=== PATIENT | female | born 1970 | race Caucasian/White ===

== ENCOUNTER 2021-09-30 10:15 | Emergency (ER) | payer OTHER, SELFPAY ==
[2021-09-30 10:37] VITALS: BP 177/87; PULSE 84; RESP 18; TEMP 37.1; O2SAT 98; BMI 31.3
--- NOTE | 2021-09-30 11:00 | ED.EAR ---
HPI - Ear Problem General Chief complaint: Ear Problems Stated complaint: Ear infection Time Seen by Provider: 09/30/21 10:50 Source: patient and family Mode of arrival: ambulatory Limitations: no limitations History of Present Illness HPI Narrative: 51-year-old female here with left ear pain since Wednesday with itching, drainage from the ear and decreased hearing. No cough, cold, fever. No history of diabetes. No recent illnesses Related Data Previous Rx's Medication Instructions Recorded amoxicillin 875 mg-potassium 1 tab PO BID #14 tab 09/30/21 clavulanate 125 mg tablet ciprofloxacin 0.3 %-dexamethasone 4 drp OTIC (EARS) BID 7 Days #7.5 09/30/21 0.1 % ear drops,suspension ml (Ciprodex) Allergies Allergy/AdvReac Type Severity Reaction Status Date / Time prochlorperazine Allergy Seizure Verified 09/30/21 10:37 [From Compazine] Review of Systems Review of Systems: Yes all other systems are reviewed and are negative Constitutional: Constitutional: Reports no additional constitutional complaints, Denies body ache(s), Denies chills, Denies fever(s), Denies headache(s) and Denies weakness Eyes: Eyes: Reports no additional eye complaints and Denies change in vision ENT: Reports system reviewed and no additional complaints, except as documented, Denies dizziness, Reports ear discharge, Reports otalgia, Denies headache(s), Reports hearing loss, Denies nasal congestion, Denies nasal discharge and Denies neck pain Cardiovascular: Cardiovascular: Reports no additional cardiovascular complaints, Denies chest pain, Denies leg edema and Denies dyspnea Respiratory: Respiratory: Reports no additional respiratory complaints, Denies cough and Denies dyspnea Gastrointestinal: Gastrointestinal: Reports no additional gastrointestinal complaints, Denies abdominal pain, Denies diarrhea, Denies nausea and Denies vomiting Genitourinary: Genitourinary: Reports no additional female genitourinary complaints and Denies urinary incontinence Musculoskeletal: Musculoskeletal: Reports no additional musculoskeletal complaints, Denies back pain, Denies arthralgias, Denies joint swelling, Denies neck pain, Denies numbness and Denies tingling Integumentary/Breasts: Skin/Breast: Reports system reviewed and no additional complaints, except as docu and Denies rash Neurologic: Reports system reviewed and no additional complaints, except as documented, Denies Abnormal speech present, Denies dizziness, Denies headache(s), Denies numbness, Denies tingling and Denies weakness PMF Past Medical History Attestation statement: The following information was validated with the patient. Source: old records reviewed and nursing notes reviewed Social History Social History Advance Directives: No Advance Directives Information Provided: No Physical Exam Vital Signs: Vital Signs: Last Vital Signs Temp 98.7 F 09/30/21 10:37 Pulse 84 09/30/21 10:37 Resp 18 09/30/21 10:37 BP 177/87 H 09/30/21 10:37 Pulse Ox 98 09/30/21 10:37 BMI result Body Mass Index 31.3 Const: General: cooperative, healthy appearing, comfortable and no acute distress Orientation/consciousness: patient oriented x3 Limitations: no limitations HENMT: Head: Yes normal to inspection Ears: hearing grossly normal bilaterally, TM normal on the right, mastoids normal, Abnormal EAC present erythema, edema, EAC tenderness and otic discharge, periauricular adenopathy and unable to visualize TM (left side) General nose exam: Normal external nose present Face and sinus: Yes normal facial exam Mouth: Normal oral and palatal mucosa present Throat: Yes posterior oropharynx normal, Yes tonsils normal and Yes uvula midline Eyes: General: appearance normal, both eyes and all related structures Pupils: Equal, round and reactive pupils present Neck: Neck: Yes normal visual inspection, Yes full ROM, Yes no lymphadenopathy and Yes no meningeal signs Chest: Chest palpation & inspection: normal inspection of the chest Resp: Effort & Inspection: normal respiratory effort Auscultation: clear to auscultation bilaterally Cardio: Rate: regular rate Rhythm: regular rhythm Peripheral pulses: Peripheral pulses 2+ throughout GI: Inspection: Yes normal to inspection Palpation (GI): Soft to palpation and nontender Auscultation: normal bowel sounds Back/Spine/Pelvis: Thoracic/Lumbar Spine: thoracic and lumbar spine normal to inspection Skin: General skin exam: no rashes or lesions noted Neuro: General: patient oriented x3, moves all extremities, no meningeal signs, no focal motor deficits and normal sensation to monofilament Cranial nerves: Yes Equal, round and reactive pupils present Cognition (Neuro): normal cognition Speech: No Abnormal speech present Gait exam (Neuro): Normal gait present Motor exam (neuro): 5/5 motor strength present throughout Extrem: General: Yes normal to inspection Course Course Course Narrative: 51-year-old female here with 4 days of left ear pain, drainage from the left ear with decreased hearing. No recent URI or cough or cold symptoms. No fever. On exam the patient has an external canal the swollen, edematous, red and tender with periauricular adenopathy. There is no mastoid tenderness. There is no redness or tenderness behind the ear. Unable to visualize TM on left side. The canal is partially open so I discussed with the patient at this time she does not require an ear wick placement. The patient is agreeable with this. I did explain to her that if she is unable to get the drops inside the ear due to swelling she will need to return. Reviewed worrisome signs and symptoms of when to return to the emergency department. Comfortable discharge home. MDM - Ear Differential Diagnosis Differential diagnosis: Likely otitis externa and otitis media Medical Records Attestation: I reviewed the patient's medical records. Lab Data Attestation: I reviewed the patient's lab results. Discharge Plan Discharge Clinical Impression: Otitis externa, Otitis media Patient Disposition: Home, Self-Care Instructions: Otitis Externa (DC), How to Use Ear Drops (ED), Ear Infection (ED) Additional Instructions: After using the drops stay laying down on the unaffected side for 15 minutes to let them instill Return for fever >100.4, swelling or pain behind the ear as discussed Prescriptions: New ciprofloxacin-dexamethasone [Ciprodex] 0.3-0.1 % drops,suspension 4 drp otic (ears) BID 7 Days Qty: 7.5 0RF amoxicillin-pot clavulanate 875-125 mg tablet 1 tab PO BID Qty: 14 0RF Referrals: Silvia Yates MD [Primary Care Provider] - 1 week (if no better)
== END 2021-09-30 11:13 | disposition home or self-care (01) ==
LOC: HO.ED 11:03
PROVIDERS: Emergency Provider Emergency Medicine; PCP Internal Medicine
DX: H60.92 Unspecified otitis externa, left ear (principal); H66.92 Otitis media, unspecified, left ear
CPT/HCPCS: 99283

== ENCOUNTER 2021-12-12 10:07 | Emergency (ER) | payer OTHER, SELFPAY ==
[2021-12-12 11:10] VITALS: BP 175/87; PULSE 74; RESP 16; TEMP 36.9; O2SAT 96; BMI 33.3
--- NOTE | 2021-12-12 11:15 | ED.GENADULT ---
HPI - General Adult General Chief complaint: Skin/Abscess/Foreign Body <NICOLA Cole - Last Filed: 12/12/21 11:29> Stated complaint: rash <NICOLA Cole Last Filed: 12/12/21 11:29> Time Seen by Provider: 12/12/21 11:14 <NICOLA Cole Last Filed: 12/12/21 11:29> Source: patient <NICOLA Cloe Last Filed: 12/12/21 11:29> Mode of arrival: ambulatory <NICOLA Cole Last Filed: 12/12/21 11:29> Limitations: no limitations <NICOLA Cole Last Filed: 12/12/21 11:29> History of Present Illness HPI narrative: Patient is a 51 year old female presenting to the emergency department today with a rash. Patient states that she developed a rash a few days ago that is very itchy and does not seem to be getting better. Patient denies any dizziness, lightheadedness, abdominal pain, nausea, vomiting, fever, chills, blurry vision, double vision, loss of vision, chest pain, difficulty breathing, shortness of breath, back pain, night sweats, pain with urination, increased urinary frequency, increased urinary urgency, blood in her urine or stool, syncope or a near syncopal episode, recent trauma or falls, bowel incontinence, bladder incontinence, bowel retention, bladder retention, or any other complaints at this time.? <NICOLA Cole - Last Filed: 12/12/21 11:29> Onset (ago): day(s) <NICOLA Cole - Last Filed: 12/12/21 11:29> Relieving factors: none <NICOLA Cole Last Filed: 12/12/21 11:29> Exacerbating factors: none <NICOLA Cole Last Filed: 12/12/21 11:29> Treatments prior to arrival: none <NICOLA Cole Last Filed: 12/12/21 11:29> Related Data Home medications: Previous Rx's Medication Instructions Recorded amoxicillin 875 mg-potassium 1 tab PO BID #14 tab 09/30/21 clavulanate 125 mg tablet ciprofloxacin 0.3 %-dexamethasone 4 drp OTIC (EARS) BID 7 Days #7.5 09/30/21 0.1 % ear drops,suspension ml (Ciprodex) prednisone 20 mg tablet 20 mg PO DAILY 12 Days #26 tab 12/12/21 <NICOLA Cole Last Filed: 12/12/21 11:29> Allergies/adverse reactions: Allergies Allergy/AdvReac Type Severity Reaction Status Date / Time prochlorperazine Allergy Seizure Verified 09/30/21 10:37 [From Compazine] <NICOLA Cole Last Filed: 12/12/21 11:29> Review of Systems Constitutional: Constitutional: Reports no additional constitutional complaints, Denies chills, Denies fever(s) and Denies night sweats <NICOLA Cole Last Filed: 12/12/21 11:29> Eyes: Eyes: Reports no additional eye complaints, Denies blurry vision, Denies change in vision, Denies diplopia, Denies eye discharge, Denies loss of vision and Denies eye pain <NICOLA Cole Last Filed: 12/12/21 11:29> ENT: Denies dizziness <NICOLA Cole Last Filed: 12/12/21 11:29> Cardiovascular: Cardiovascular: Reports no additional cardiovascular complaints, Denies chest pain, Denies lightheadedness, Denies Loss of Consciousness and Denies dyspnea <NICOLA Cole Last Filed: 12/12/21 11:29> Respiratory: Respiratory: Reports no additional respiratory complaints and Denies dyspnea <NICOLA Cole Last Filed: 12/12/21 11:29> Gastrointestinal: Gastrointestinal: Reports no additional gastrointestinal complaints, Denies abdominal pain, Denies melena, Denies hematochezia, Denies change in bowel habits and Denies change in stool character <NICOLA Cole Last Filed: 12/12/21 11:29> Genitourinary: Genitourinary: Denies hematuria, Denies urinary frequency, Denies dysuria, Denies urinary incontinence, Denies urinary hesitancy and Denies urinary urgency <NICOLA Cole Last Filed: 12/12/21 11:29> Musculoskeletal: Musculoskeletal: Reports no additional musculoskeletal complaints, Denies numbness and Denies tingling <NICOLA Cole - Last Filed: 12/12/21 11:29> Integumentary/Breasts: Skin/Breast: Reports rash <NICOLA Cole - Last Filed: 12/12/21 11:29> Neurologic: Denies dizziness, Denies loss of vision, Denies numbness and Denies tingling <NICOLA Cole - Last Filed: 12/12/21 11:29> Psychiatric: Psychiatric: Reports no additional psychiatric complaints <NICOLA Cole - Last Filed: 12/12/21 11:29> Endocrine: Endocrine: Reports no additional endocrine complaints <NICOLA Cole - Last Filed: 12/12/21 11:29> Hematologic/Lymphatic: Hematologic/Lymphatic: Reports no additional hematologic/lymphatic complaints <NICOLA Cole - Last Filed: 12/12/21 11:29> Allergic/Immunologic: Allergic/Immunologic: Reports no additional allergic/immunologic complaints <NICOLA Coel - Last Filed: 12/12/21 11:29> PMFSH Past Medical History Attestation statement: The following information was validated with the patient. <NICOLA Cole - Last Filed: 12/12/21 11:29> Source: old records reviewed <NICOLA Cole - Last Filed: 12/12/21 11:29> Social History Social History: Social History Advance Directives: No Advance Directives Information Provided: Yes <NICOLA Cole - Last Filed: 12/12/21 11:29> Physical Exam ED Vital Signs: Vital Signs - 24 hr 12/12/21 11:10 Temperature 98.5 F Pulse Rate 74 Respiratory Rate 16 Blood Pressure 175/87 H Pulse Oximetry 96 BMI result Body Mass Index 33.3 <NICOLA Cole - Last Filed: 12/12/21 11:29> Const General: cooperative, no acute distress, alert and awake <NICOLA Cole - Last Filed: 12/12/21 11:29> Nutritional Appearance: well nourished <NICOLA Cole - Last Filed: 12/12/21 11:29> Orientation/consciousness: patient oriented x3 <NICOLA Cole - Last Filed: 12/12/21 11:29> Limitations: no limitations <Judi Blocksiena [facility] - Last Filed: 12/12/21 11:29> HENMT Head: Yes normal to inspection and Yes atraumatic <Judi Blocksiena NH - Last Filed: 12/12/21 11:29> Ears: hearing grossly normal bilaterally and external ears normal <Judi Aditya NH - Last Filed: 12/12/21 11:29> General nose exam: Normal external nose present, no nasal discharge noted and no epistaxis <Judichristina Blocksiena NH - Last Filed: 12/12/21 11:29> Face and sinus: Yes normal facial exam, No abrasion and No laceration <Judi Burgess NH - Last Filed: 12/12/21 11:29> Mouth: Normal oral and palatal mucosa present, no drooling and no muffled voice <Judi Burgess NH - Last Filed: 12/12/21 11:29> Eyes General: appearance normal, both eyes and all related structures <Judi Burgess NH - Last Filed: 12/12/21 11:29> Periorbital: periorbital findings normal <Judi Aditya NH - Last Filed: 12/12/21 11:29> Eyelids: Yes eyelids normal <Judi Burgess NH - Last Filed: 12/12/21 11:29> Conjunctivae: conjunctivae normal <Judi Burgess NH - Last Filed: 12/12/21 11:29> Pupils: Equal, round and reactive pupils present <Judi Burgess NH - Last Filed: 12/12/21 11:29> EOM: EOMs intact bilaterally <Judi Burgess NH - Last Filed: 12/12/21 11:29> Neck Neck: Yes normal visual inspection, Yes full ROM and Yes no lymphadenopathy <NICOLA Cole - Last Filed: 12/12/21 11:29> Chest Chest palpation & inspection: normal inspection of the chest <NICOLA Cole - Last Filed: 12/12/21 11:29> Resp Effort & Inspection: normal respiratory effort and able to speak in complete sentences <NICOLA Cole - Last Filed: 12/12/21 11:29> Auscultation: clear to auscultation bilaterally <Judi Burgess PA - Last Filed: 12/12/21 11:29> Cardio Rate: regular rate <Judi Burgess PA - Last Filed: 12/12/21 11:29> Rhythm: regular rhythm <Judi Burgess PA - Last Filed: 12/12/21 11:29> GI Inspection: Yes normal to inspection <Judi Burgess PA - Last Filed: 12/12/21 11:29> Skin Other: rash present to the bilateral upper and lower extremities as well as the trunk <Judi Burgess PA - Last Filed: 12/12/21 11:29> Neuro General: patient oriented x3 and moves all extremities <Judi Burgess PA - Last Filed: 12/12/21 11:29> Cranial nerves: Yes Equal, round and reactive pupils present <Judi Burgess PA - Last Filed: 12/12/21 11:29> Cognition (Neuro): normal cognition <Judi Burgess PA - Last Filed: 12/12/21 11:29> Motor exam (neuro): 5/5 motor strength present throughout <Judi Burgess PA - Last Filed: 12/12/21 11:29> Sensory Exam: Normal double simultaneous stimulation for sensation <Judi Burgess PA - Last Filed: 12/12/21 11:29> Coordination: [id number] test normal <Judi Burgess PA - Last Filed: 12/12/21 11:29> Extrem General: Yes normal to inspection, Yes full ROM and Yes capillary refill normal <Judi Burgess PA - Last Filed: 12/12/21 11:29> Psych Appearance: grossly normal <Judi Burgess PA - Last Filed: 12/12/21 11:29> Mental Status: mental status grossly normal <Judi BlockNICOLA wren - Last Filed: 12/12/21 11:29> Affect: normal affect <Judi Burgess PA - Last Filed: 12/12/21 11:29> Attitude: cooperative <Judi Blocksiena PA - Last Filed: 12/12/21 11:29> Thought process: Normal thought process present <Judi Blocksiena PA - Last Filed: 12/12/21> Thought content: Normal thought content present <NICOLA Cole Last Filed: 12/12/21 11:29> Insight: Good insight present (Psych) <NICOLA Cole Last Filed: 12/12/21 11:29> Medical Decision Making MDM Narrative Medical decision making narrative: Patient is a 51 year old female presenting to the emergency department today with a puritic rash. Patient's physical exam showed an erythematous rash to the bilateral upper and lower extremities as well as the left side of the trunk. I explained my physical exam findings to the patient. I answered all questions asked by the patient. I stressed the importance of the patient taking her medication as prescribed. I stressed the importance of the patient following up with her primary care provider. I stressed the importance of the patient returning to the emergency department immediately if her symptoms were to worsen or if she were to develop any dizziness, shortness of breath, difficulty breathing, chest pain, blurry vision, loss of vision, nausea, vomiting, abdominal pain, fever, chills, back pain, or any other complaints. Patient verbalized agreement and understanding with this treatment plan and discharge. <NICOLA Cole Last Filed: 12/12/21 11:29> Differential Diagnosis Differential Diagnosis: idiopathic urticaria, rash <NICOLA Cole Last Filed: 12/12/21 11:29> Medical Records Medical records reviewed: Yes I reviewed the patient's medical records. <NICOLA Cole Last Filed: 12/12/21 11:29> Discharge Plan Discharge Clinical Impression: Rash <NICOLA Cole Last Filed: 12/12/21 11:29> Patient Disposition: Home, Self-Care <NICOLA Cole Last Filed: 12/12/21 11:29> Instructions: Acute Rash (ED) <NICOLA Cole Last Filed: 12/12/21 11:29> Additional Instructions: Follow up with your primary care provider. Return to the emergency department immediately if your symptoms worsen or if you develop any dizziness, shortness of breath, difficulty breathing, chest pain, blurry vision, loss of vision, nausea, vomiting, abdominal pain, fever, chills, back pain, or any other complaints. <NICOLA Cole Last Filed: 12/12/21 11:29> Prescriptions: New prednisone 20 mg tablet 20 mg PO DAILY 12 Days Qty: 26 0RF Rx Instructions: Take 3 tablets by mouth for 5 days THEN take 2 tablets by mouth for 4 days THEN take 1 tablet by mouth for 3 days No Action ciprofloxacin-dexamethasone [Ciprodex] 0.3-0.1 % drops,suspension 4 drp otic (ears) BID 7 Days Qty: 7.5 0RF amoxicillin-pot clavulanate 875-125 mg tablet 1 tab PO BID Qty: 14 0RF <NICOLA Cole - Last Filed: 12/12/21 11:29> Referrals: Silvia Yates MD [Primary Care Provider] - (Follow up with your PCP. ) <NICOLA Cole - Last Filed: 12/12/21 11:29> Print Language: Bahraini <NICOLA Cole - Last Filed: 12/12/21 11:29>
== END 2021-12-12 12:11 | disposition home or self-care (01) ==
PROVIDERS: Emergency Provider Emergency Medicine; PCP Internal Medicine
DX: L02.219 Cutaneous abscess of trunk, unspecified (principal); L02.416 Cutaneous abscess of left lower limb; L02.415 Cutaneous abscess of right lower limb; Z79.899 Other long term (current) drug therapy
CPT/HCPCS: 99283